=== PATIENT | male | born 1955 | race Caucasian/White ===

== ENCOUNTER 2022-01-26 14:54 | Inpatient (IN) | payer OTHER ==
[~2022-01-26] VITALS: Ht 175.3 cm; Wt 81.4 kg
[2022-01-26 15:37] LABS: BASOPHILS ABSOLUTE AUTO 0.07 K/mm3 (0.00-0.23); BASOPHILS PERCENT AUTO 1 % (0-2); EOSINOPHILS ABSOLUTE AUTO 0.19 K/mm3 (0.00-0.68); EOSINOPHILS PERCENT AUTO 1 % (0-6); Hematocrit 45.2 % (37.0-53.0); Hemoglobin 15.2 g/dL (13.5-17.5); IMMATURE GRAN ABSOLUTE AUTO 0.06 K/mm3 (0.00-0.10); IMMATURE GRAN PERCENT AUTO 0 % (0-1); LYMPHOCYTES ABSOLUTE AUTO 1.81 K/mm3 (0.84-5.20); LYMPHOCYTES PERCENT AUTO 14 % (21-46); MONOCYTES ABSOLUTE AUTO 1.58 K/mm3 (0.16-1.47); MONOCYTES PERCENT AUTO 12 % (4-13); Mean Corpuscular HGB 29.3 pg (26.0-34.0); Mean Corpuscular HGB Conc 33.6 g/dL (31.5-36.5); Mean Corpuscular Volume 87 fL (80-100); Mean Platelet Volume 9.4 fL (9.1-12.4); NEUTROPHILS ABSOLUTE AUTO 9.73 K/mm3 (1.96-9.15); NEUTROPHILS PERCENT AUTO 72 % (41-73); Platelet Count 428 K/mm3 (150-400); RDW Coefficient Variation 12.6 % (11.7-14.2); RDW Standard Deviation 40.9 fL (35.1-46.3); Red Blood Cell Count 5.18 M/mm3 (4.30-5.90); White Blood Cell Count 13.44 K/mm3 (4.00-11.30)
[2022-01-26 15:45] LABS: Calcium, Ionized (POC) 1.21 mmol/L (1.10-1.46); Chloride (POC) 99 mmol/L (98-108); Creatinine (POC) 1.1 mg/dL (0.8-1.3); Glucose (ISTAT POC) 138 mg/dL (70-99); Hemoglobin (POC) 15.3 g/dL (13.5-17.5); Potassium (POC) 3.6 mmol/L (3.5-5.5); Sodium (POC) 138 mmol/L (135-148); Total CO2 (POC) 26 mmol/L (21-32)
[2022-01-26 15:53] LABS: Albumin/Globulin Ratio 0.9 (0.8-1.8); Bilirubin, Total 0.4 mg/dL (0.1-1.0); Bun/Creatinine Ratio 12.6 (12.0-20.0); Calcium, Blood 9.6 mg/dL (8.5-10.1); Creatinine, Blood 1.03 mg/dL (0.60-1.20); Globulin, Blood 4.6 g/dL (2.2-4.0); Potassium, Blood 3.8 mmol/L (3.5-5.5); Total Protein, Blood 8.6 g/dL (6.4-8.2)
[2022-01-26 15:58] LABS: Influenza A, PCR NEGATIVE (NEGATIVE); Influenza B, PCR NEGATIVE (NEGATIVE); Resp Syncytial Virus, PCR NEGATIVE (NEGATIVE); SARS-Cov-2 (COVID-19) PCR, MMC NEGATIVE (NEGATIVE)
[2022-01-26 16:30] LABS: International Normalized Ratio 1.01; Prothrombin Time Results 10.6 Sec (9.7-11.5)
[2022-01-26 17:27] LABS: U Amphetamine Screen DETECTED; U Barbituate Screen Not Detected; U Benzodiazapine Screen Not Detected; U Buprenorphine Screen Not Detected; U Cannabinoids Screen DETECTED; U Cocaine Screen Not Detected; U Methadone Screen Not Detected; U Methamphetamine Screen DETECTED; U Opiates Screen Not Detected; U Oxycodone Screen Not Detected; U Phencyclidine Screen Not Detected; U Propoxyphene Screen Not Detected
[2022-01-26] MEDS ORDERED: OMEP20ER PO (18:09)
--- NOTE | 2022-01-26 18:43 | NUR ---
PT [facility]. VS STABLE. HR NSR WITH PVC. BP STABLE. PT DENIES ANY PAIN. RIGHT RADIAL SITE WITH 12ML OF AIR IN THE BAND. NO BLEEDING, BRUISING OR HEMATOMA NOTED. PT EDUCATED ON RESTRICTIONS TO RIGHT ARM. PT ORIENTED TO UNIT WILL CONTINUE TO MONITOR AND REPORT TO ONCOMING RN
[2022-01-27 04:44] LABS: BASOPHILS ABSOLUTE AUTO 0.07 K/mm3 (0.00-0.23); BASOPHILS PERCENT AUTO 1 % (0-2); EOSINOPHILS ABSOLUTE AUTO 0.16 K/mm3 (0.00-0.68); EOSINOPHILS PERCENT AUTO 1 % (0-6); Hematocrit 43.4 % (37.0-53.0); Hemoglobin 14.3 g/dL (13.5-17.5); IMMATURE GRAN ABSOLUTE AUTO 0.04 K/mm3 (0.00-0.10); IMMATURE GRAN PERCENT AUTO 0 % (0-1); LYMPHOCYTES ABSOLUTE AUTO 1.53 K/mm3 (0.84-5.20); LYMPHOCYTES PERCENT AUTO 12 % (21-46); MONOCYTES ABSOLUTE AUTO 1.96 K/mm3 (0.16-1.47); MONOCYTES PERCENT AUTO 15 % (4-13); Mean Corpuscular HGB 29.1 pg (26.0-34.0); Mean Corpuscular HGB Conc 32.9 g/dL (31.5-36.5); Mean Corpuscular Volume 88 fL (80-100); Mean Platelet Volume 9.4 fL (9.1-12.4); NEUTROPHILS ABSOLUTE AUTO 9.53 K/mm3 (1.96-9.15); NEUTROPHILS PERCENT AUTO 72 % (41-73); Platelet Count 391 K/mm3 (150-400); RDW Coefficient Variation 12.7 % (11.7-14.2); RDW Standard Deviation 41.3 fL (35.1-46.3); Red Blood Cell Count 4.92 M/mm3 (4.30-5.90); White Blood Cell Count 13.29 K/mm3 (4.00-11.30)
[2022-01-27 05:04] LABS: Albumin, Blood 3.3 g/dL (3.4-5.0); Albumin/Globulin Ratio 0.8 (0.8-1.8); Bilirubin, Total 0.5 mg/dL (0.1-1.0); Bun/Creatinine Ratio 13.3 (12.0-20.0); Calcium, Blood 8.9 mg/dL (8.5-10.1); Creatinine, Blood 1.05 mg/dL (0.60-1.20); Globulin, Blood 3.9 g/dL (2.2-4.0); Potassium, Blood 3.9 mmol/L (3.5-5.5); Total Protein, Blood 7.2 g/dL (6.4-8.2)
--- NOTE | 2022-01-27 06:22 | NUR ---
SHIFT SUMMARY: PT RESTED THROUGHOUT NIGHT. SINUS TACH/ARRYTHMIA RATE 100-120. TR BAND REMOVED FROM R RADIAL AND DRESSING IN PLACE. NO SSX HEMATOMA.
--- NOTE | 2022-01-27 07:51 | NUR ---
0715 Bedside report received from Justine. Guadalupe from [facility] is here to start the pt's echocardiogram. Pt appears to be calm, comfortable, wide awake, and pleasantly conversant. STates that he expects to go home today.
--- NOTE | 2022-01-27 08:16 | NUR ---
Pt is lying in bed, HOB elevated. He is pleasant, in no distress. STates hungry for breakfast. Requesting coffee. Hands are rough, appear to be stained/dirty with dried blood on the radial access site right wrist and left hand index finger, scant amounts. Denies any discomfort. Lung sounds noted with wheezing. Pt states he has an occasional productive cough. NO dyspnea. Pt states that he can hear the wheezing as well, and states "I guess I'm getting a cold or something." BLood pressure noted 94/71 (79) so lisinopril and Toprol XL are held this morning per ordered parameters. PT states that he just moved from [place], staying on someone's property in a trailer on [address] as he has a restraining order from his daughter recently against him which prevents him from living on her property as before. STates he has no phone, no phone numbers, no money, and isn't sure how he is getting home. Will contact discharge planning for assistance.
--- NOTE | 2022-01-27 08:38 | NUR ---
Pt states that Dr. Conley was here and that he said he will not be going home today, due to low blood pressure. Toprol XL and lisinopril held this morning due to hypotension.
--- NOTE | 2022-01-27 10:17 | NUR ---
Dr. Cota here rounding on the patient. Pt education given regarding importance of medications and treatment going forward for cardiac infarction. Waiting on Echocardiogram results and monitoring vital signs in anticipation of possible discharge today or tomorrow. Angela, digital media planner now talking with the patient and gave him information about his transportation provided by insurance provider for going home.
--- NOTE | 2022-01-27 12:19 | NUR ---
Pt's granddaughter Shena called to talk with the pt. She is going to contact pt's friends so that they can bring his phone in to him.
[2022-01-28 04:53] LABS: BASOPHILS ABSOLUTE AUTO 0.06 K/mm3 (0.00-0.23); BASOPHILS PERCENT AUTO 1 % (0-2); EOSINOPHILS ABSOLUTE AUTO 0.18 K/mm3 (0.00-0.68); EOSINOPHILS PERCENT AUTO 2 % (0-6); Hematocrit 42.8 % (37.0-53.0); Hemoglobin 14.4 g/dL (13.5-17.5); IMMATURE GRAN ABSOLUTE AUTO 0.03 K/mm3 (0.00-0.10); IMMATURE GRAN PERCENT AUTO 0 % (0-1); LYMPHOCYTES ABSOLUTE AUTO 1.54 K/mm3 (0.84-5.20); LYMPHOCYTES PERCENT AUTO 16 % (21-46); MONOCYTES PERCENT AUTO 15 % (4-13); Mean Corpuscular HGB 29.3 pg (26.0-34.0); Mean Corpuscular HGB Conc 33.6 g/dL (31.5-36.5); Mean Corpuscular Volume 87 fL (80-100); Mean Platelet Volume 9.3 fL (9.1-12.4); NEUTROPHILS ABSOLUTE AUTO 6.39 K/mm3 (1.96-9.15); NEUTROPHILS PERCENT AUTO 67 % (41-73); Platelet Count 384 K/mm3 (150-400); RDW Coefficient Variation 12.7 % (11.7-14.2); Red Blood Cell Count 4.92 M/mm3 (4.30-5.90)
[2022-01-28 05:09] LABS: Albumin, Blood 3.1 g/dL (3.4-5.0); Anion Gap 4 mmol/L (6-16); Blood Urea Nitrogen 23 mg/dL (8-24); Bun/Creatinine Ratio 22.8 (12.0-20.0); CO2, Blood 28 mmol/L (21-32); Chloride, Blood 105 mmol/L (98-108); Creatinine, Blood 1.01 mg/dL (0.60-1.20); Glomerular Filtration Rate 83 (60-); Glucose, Blood 98 mg/dL (70-99); Magnesium, Blood 2.5 mg/dL (1.6-2.4); Phosphorus, Blood 3.3 mg/dL (2.5-4.9); Potassium, Blood 4.1 mmol/L (3.5-5.5); Sodium, Blood 137 mmol/L (136-145)
--- NOTE | 2022-01-28 05:50 | NUR ---
SHIFT SUMMARY PT A&0, RESPONDING APPROPRIATELY. PLEASANT UPON INTERACTIONS. VSS; SBP A LITTLE SOFT BUT INCREASING FROM DAYSHIFT. HR; ST/SR IN 90'S - 100'S, INCREASES TO 120'S WITH MOVEMENT OR EXERTION. 02 >97% ON RA. PT DENIES SOB, CHEST PAIN OR CHEST PRESSURE. PT HAS OCCASSIONAL, PRODUCTIVE COUGH. THIS RN DID NOT SEE PT COUGH UP ANY SPUTUM, BUT PT REPORTS THICK, CLEAR SPUTUM. PT REPORTS HE FEELING BETTER, BUT JUST TIRED. NO ACUTE CHANGES DURING SHIFT. PT DRINKING FLUIDS AND VOIDING. PT UP TO BATHROOM INDEPENDENTLY. CALL LIGHT IN REACH
--- NOTE | 2022-01-28 09:18 | NUR ---
Dr. Cota is here rounding on pt. Dr. Conley was here about an hour ago; lisinopril was dc'd.
[2022-01-28] MEDS ORDERED: PANT20 PO (10:48)
[2022-01-28] MEDS ORDERED: ASPI81CH PO (10:48)
[2022-01-28] MEDS ORDERED: CLOP75 PO (10:49)
[2022-01-28] MEDS ORDERED: LIPITOR80 MG PO (10:49)
[2022-01-28] MEDS ORDERED: METO25ER PO (10:50)
[2022-01-28] MEDS ORDERED: NITR.4SL SL (10:50)
--- NOTE | 2022-01-28 14:14 | NUR ---
Notified pt that his prescriptions were updated from 30 day supply to a 90 day supply. Faxed to [facility]. Pt is calling around, trying to get a ride home.
== END 2022-01-28 16:15 | disposition home or self-care (01) | DRG 247 ==
LOC: ER 14:54 → PCU 14:56 → ER 15:48 → PCU 15:48
PROVIDERS: Emergency Medicine; Internal Medicine; Physician Assistant; ADMIT Internal Medicine Cardiovascular Disease
PROC: 027034Z Dilation of Coronary Artery, One Artery with Drug-eluting Intraluminal Device, Percutaneous Approach (ICD-10-PCS; principal; 2022-01-26)
PROC: 4A023N7 Measurement of Cardiac Sampling and Pressure, Left Heart, Percutaneous Approach (ICD-10-PCS; 2022-01-26)
PROC: B2111ZZ Fluoroscopy of Multiple Coronary Arteries using Low Osmolar Contrast (ICD-10-PCS; 2022-01-26)
PROC: B2151ZZ Fluoroscopy of Left Heart using Low Osmolar Contrast (ICD-10-PCS; 2022-01-26)
PROC: B24BZZ3 Ultrasonography of Heart with Aorta, Intravascular (ICD-10-PCS; 2022-01-26)
DX: I21.4 Non-ST elevation (NSTEMI) myocardial infarction (principal); Z20.822 Contact with and (suspected) exposure to COVID-19; I25.10 Atherosclerotic heart disease of native coronary artery without angina pectoris; Z28.21 Immunization not carried out because of patient refusal; K21.9 Gastro-esophageal reflux disease without esophagitis; I11.9 Hypertensive heart disease without heart failure; F12.10 Cannabis abuse, uncomplicated; I95.9 Hypotension, unspecified; F19.10 Other psychoactive substance abuse, uncomplicated; Z71.51 Drug abuse counseling and surveillance of drug abuser; Z98.890 Other specified postprocedural states; Z87.891 Personal history of nicotine dependence
CPT/HCPCS: 0241U; 36415; 71045; 76937; 80047; 80053; 80069; 83735; 83880; 84484; 85014; 85025; 85347; 85610; 85730; 93005; 93010; 93306; 93454; 96372; 99152; 99153; A9270; C1725; C1769; C1874; C1887; C1894; C9113; C9600; G0378; J1644; J1650; J1940; J2250; J2270; J3010; J7030; J7040; J7050; Q9967

== ENCOUNTER → 2022-06-18 | Outpatient (CLI) | payer OTHER ==
[~2022-06-18] MED LIST: ASPI81CH PO; CLOP75 PO; DOXY100 PO; LIPITOR80 MG PO; METO25ER PO; NITR.4SL SL; OMEP20ER PO; PANT20 PO
[2022-06-18 09:48] LABS: Albumin, Blood 3.3 g/dL (3.4-5.0); Albumin/Globulin Ratio 0.9 (0.8-1.8); Bilirubin, Total 0.4 mg/dL (0.1-1.0); Bun/Creatinine Ratio 20.9 (12.0-20.0); Calcium, Blood 9.3 mg/dL (8.5-10.1); Creatinine, Blood 1.15 mg/dL (0.60-1.20); Globulin, Blood 3.5 g/dL (2.2-4.0); Magnesium, Blood 2.5 mg/dL (1.6-2.4); Phosphorus, Blood 3.1 mg/dL (2.5-4.9); Potassium, Blood 4.4 mmol/L (3.5-5.5); Total Protein, Blood 6.8 g/dL (6.4-8.2)
== END | disposition home or self-care (01) ==
LOC: LAB SHORT 08:35
PROVIDERS: Internal Medicine Hematology & Oncology
DX: C34.2 Malignant neoplasm of middle lobe, bronchus or lung (principal)
CPT/HCPCS: 80053; 83735; 84100

== ENCOUNTER → 2022-07-07 | Outpatient (CLI) | payer OTHER ==
[2022-07-07 10:56] LABS: Albumin, Blood 3.3 g/dL (3.4-5.0); Albumin/Globulin Ratio 0.9 (0.8-1.8); Bilirubin, Total 0.3 mg/dL (0.1-1.0); Bun/Creatinine Ratio 13.8 (12.0-20.0); Calcium, Blood 9.3 mg/dL (8.5-10.1); Creatinine, Blood 0.94 mg/dL (0.60-1.20); Globulin, Blood 3.7 g/dL (2.2-4.0); Magnesium, Blood 2.5 mg/dL (1.6-2.4); Phosphorus, Blood 3.7 mg/dL (2.5-4.9)
== END | disposition home or self-care (01) ==
LOC: LAB SHORT 08:40
PROVIDERS: Internal Medicine Hematology & Oncology
DX: C34.2 Malignant neoplasm of middle lobe, bronchus or lung (principal)
CPT/HCPCS: 80053; 83735; 84100